=== PATIENT | female | born 1985 | race Caucasian/White ===

== ENCOUNTER 2018-08-03 09:46 | Inpatient (IN) | payer OTHER ==
[~2018-08-03] VITALS: Ht 162.6 cm; Wt 75.3 kg
== END 2018-08-24 12:26 | disposition home or self-care (01) | DRG 807 ==
LOC: OB/GYN 08-22 11:04 → LDR 08-22 11:04 → OB/GYN 08-22 13:30
PROVIDERS: ADMIT Obstetrics & Gynecology Maternal & Fetal Medicine
PROC: 10E0XZZ Delivery of Products of Conception, External Approach (ICD-10-PCS; principal; 2018-08-22)
PROC: 0KQM0ZZ Repair Perineum Muscle, Open Approach (ICD-10-PCS; 2018-08-22)
PROC: 4A1HXCZ Monitoring of Products of Conception, Cardiac Rate, External Approach (ICD-10-PCS; 2018-08-22)
PROC: 4A033R1 Measurement of Arterial Saturation, Peripheral, Percutaneous Approach (ICD-10-PCS; 2018-08-22)
DX: O70.1 Second degree perineal laceration during delivery (principal); Z37.0 Single live birth; Z3A.39 39 weeks gestation of pregnancy

== ENCOUNTER 2018-08-22 10:04 | Outpatient (CLI) | payer OTHER | END 2018-08-22 11:04 | disposition still patient (30) | LOC: NST 10:04 | DX: Z34.83 Encounter for supervision of other normal pregnancy, third trimester (principal) ==